=== PATIENT | female | born 1965 | race Caucasian/White ===

== ENCOUNTER 2021-02-10 07:53 | Outpatient (CLI) | payer BC, SELFPAY ==
--- NOTE | ~2021-02-10 | US_ITS ---
EXAMINATION: US abdomen complete DATE: 02/10/2021 08:25 INDICATION: Hepatomegaly TECHNIQUE: Multiple grayscale and Doppler ultrasound images of the abdomen were obtained. COMPARISON: None available FINDINGS: The head, body, and tail of the pancreas are normal. The liver is normal with normal echoge nicity and echotexture. No surface nodularity. Normal hepatopetal flow in the main portal vein. The g allbladder is normal with no abnormal wall thickening, pericholecystic fluid or stones. The normal co mmon bile duct measures 3 mm. There was no sonographic Wan sign. The visualized portions of the ao rta and inferior vena cava are normal. The right kidney measures a 10.0 x 3.5 x 3.7 cm. The left kidney measures 10.8 x 4.8 x 5.5 cm. The ki dneys demonstrate normal parenchymal echogenicity. There is no hydronephrosis. The spleen is normal i n appearance and measures 11.0 cm. IMPRESSION: 1. Normal sonographic appearance of the liver. Reviewed, dictated and finalized at location A. DROGENATION SUPERVISOR
--- NOTE | ~2021-02-10 | MM_ITS ---
EXAMINATION: MM screening vicente BI w carl HISTORY: Screening TECHNIQUE: Craniocaudal and mediolateral oblique 3-D tomosynthesis images were obtained and synthetic 2-D images were generated. CAD analysis was submitted and interpreted. COMPARISON: No prior mammogram is available for comparison at this institution. BREAST PARENCHYMAL COMPOSITION: Breast composed of scattered areas of fibroglandular density. FINDINGS: There is a cluster of indeterminate calcifications lower inner quadrant of the right breast . No suspicious masses, calcifications or architectural distortion in the left breast to suggest reggie gnancy. IMPRESSION: 1. Clustered indeterminate right breast calcifications, lower inner quadrant. 2. Magnification views are recommended. BI-RADS Category 0: Incomplete: Needs additional imaging evaluation. Reviewed, dictated and finalized at location A. GE WORKER
== END 2021-02-10 07:54 | disposition home or self-care (01) ==
LOC: CHSIMG 07:58
PROVIDERS: PCP Internal Medicine; Visit Provider Internal Medicine
DX: R16.0 Hepatomegaly, not elsewhere classified (principal); Z12.31 Encounter for screening mammogram for malignant neoplasm of breast
CPT/HCPCS: 76700; 77063; 77067

== ENCOUNTER 2021-02-17 09:56 | Outpatient (CLI) | payer BC, SELFPAY ==
--- NOTE | ~2021-02-17 | MM_ITS ---
EXAMINATION: MM diagnostic vicente RT w carl HISTORY: Follow-up right breast calcifications TECHNIQUE: Additional 3-D tomosynthesis images of the right breast were performed and synthetic 2-D i mages were generated. CAD analysis was submitted and interpreted. COMPARISON: 02/10/2021 BREAST PARENCHYMAL COMPOSITION: Breast composed of scattered areas of fibroglandular density. FINDINGS: There are pleomorphic clustered calcifications in the upper inner quadrant of the right kvng ast posteriorly. There are no suspicious masses or architectural distortion. IMPRESSION: 1. Clustered pleomorphic right breast calcifications. 2. Comparison to previous outside mammograms recommended. If prior mammograms are not available, ster eotactic right breast biopsy recommended. BI-RADS Category 0: Incomplete: Needs additional imaging evaluation. Reviewed, dictated and finalized at location A. RSIONAL THERAPIST'S ASSISTANT IMPRESSION: 1. Clustered pleomorphic right breast calcifications. 2. Comparison to previous outside mammograms recommended. If prior mammograms a re not available, stereotactic right breast biopsy recommended. BI-RADS Category 0: Incomplete: Needs additional imaging evaluation.
== END 2021-02-17 09:57 | disposition home or self-care (01) ==
LOC: CHSIMG 09:57
PROVIDERS: PCP Internal Medicine; Visit Provider Internal Medicine
DX: R92.1 Mammographic calcification found on diagnostic imaging of breast (principal)
CPT/HCPCS: 77061; 77065; G0279

== ENCOUNTER 2021-03-16 10:55 | Outpatient (CLI) | payer BC, SELFPAY ==
--- NOTE | ~2021-03-16 | MM_ITS ---
MM stereotactic bx RT, MM stereotactic specimen RT, MM post biopsy diagnostic RT EXAMINATION: MM ster eotactic bx RT, MM stereotactic specimen RT, MM post biopsy diagnostic RT DATE: Benjamin Yen M.D. INDICATION: Normal calcifications in the right breast. Stereotactic core biopsy is requested evalu e for malignancy.] TECHNIQUE AND FINDINGS: The risks and potential benefits of the procedure were discussed with the patient and written informe d consent was obtained. The patient was placed in the prone position clustered at the table with the right breast in craniocaudal compression, and the area of interest was localized and targeted utiliz ing digital imaging with stereotaxis. After sterile preparation of the skin, 1% lidocaine was utilized for local anesthesia at the skin pun cture site and 1% lidocaine with epinephrine was utilized for deeper local anesthesia/is about the bi opsy site. A 9G Zadspace vacuum assisted biopsy needle was advanced to the level of the calcification o f interest from a cephalad approach utilizing stereotactic guidance and a total of 6 tissue core biop sies were obtained. A specimen radiograph demonstrates that the calcifications of interest are included within the tissue cores. A tissue marker clip was then placed at the biopsy site. The needle was removed and hemosta sis was achieved. The patient tolerated the procedure well and there is no evidence of significant i mmediate complication. The patient was given verbal as well as written postprocedural instructions p rior to discharge from the department. Tissue cores were submitted to surgical pathology for histolo gic analysis. A 2-view right unilateral digital mammogram was obtained post procedure and this demonstrates that e tissue marker clip is in expected position. Tissue marker located in the lower inner quadrant of th e right breast.] IMPRESSION: 1. Successful stereotactic biopsy of calcifications in the lower inner quadrant of the right breast, followed by tissue marker clip placement. Please refer to pathology report for histologic analysis. Reviewed, dictated and finalized at location A. RANCE LOSS CONTROL SURVEYOR IMPRESSION: 1. Successful stereotactic biopsy of calcifications in the lower inner quadran t of the right breast, followed by tissue marker clip placement. Please refer to pathology report for histologic analysis. IMPRESSION: 1. Successful stereotactic biopsy of calcifications in the lower inner quadran t of the right breast, followed by tissue marker clip placement. Please refer to pathology report for histologic analysis.
== END 2021-03-16 10:56 | disposition home or self-care (01) ==
LOC: ANHIMG 10:58
PROVIDERS: PCP Internal Medicine; Visit Provider Internal Medicine
DX: R92.1 Mammographic calcification found on diagnostic imaging of breast (principal)
CPT/HCPCS: 19081; 77065; 88305; A4648

== ENCOUNTER 2021-09-12 00:12 | Day surgery (SDC) | payer BC, SELFPAY ==
[2021-08-15 14:35] VITALS: BMI 30.2
--- NOTE | 2021-09-11 13:19 | P.PNAN_ITS ---
Anes - Initial Pre Proc Eval Procedure: Operation Date: 09/12/21 11:45 Proposed Procedures p Screening Colonoscopy - Blas Bowden MD Date/Time: 09/11/21 13:19 Surgeon: Blas Bowden MD Pre Op Diagnosis: hx of colon polyps Patient Data Age: 56 Gender: F Height: 1.73 m Weight: 90 kg Allergies Allergy/AdvReac Type Severity Reaction Status Date / Time Penicillins Allergy Severe Unknown Verified 09/12/21 10:26 Home Medications Medication Instructions Recorded Confirmed Type No Home Medications 04/14/21 08/15/21 History Patient hx anesthesia problems: none Family hx anesthesia problems: none Results Review: All pre-operative results and documents have been reviewed as part of the pre- operative evaluation. [facility] Past Medical History Medical History (Updated 09/11/21 @ 13:19 by Elvis Reid MD) Obesity Social History Social History Smoking status: Never smoker Alcohol intake: current Drinks per week: 1 Substance use: never Substance use type: does not use Living arrangements: with family Spiritual care concerns: No Anes - Eval Final PreProcedure Day of Procedure 09/11/21 13:19 Patient weight: obese Heart: regular rate and rhythm Lungs: clear to auscultation and normal air movement Airway: Mallampati scale class II Neurological: alert and oriented Last oral intake: >/= 8 hours ASA classification: II Emergent: no Anesthetic plan: proceed Anesthesia type and monitoring: general GIVS Results Review: All pre-operative results and documents have been reviewed as part of the pre- operative evaluation. Informed Consent: The patient's anesthetic plan and its attendant risks and benefits were discussed with the patient/family/POA. Questions were solicited and answers provided to the satisfaction of the patient/family/POA.
[2021-09-12 10:27] VITALS: BP 130/88; PULSE 94; RESP 18; TEMP 36.6; O2SAT 99; BMI 29.9
[2021-09-12] MEDS: LACTATED RINGERS 1,000 ML 150 ML IV CONT (10:52)
--- NOTE | 2021-09-12 11:30 | PM.HPGS ---
History of Present Illness History of Present Illness Consent: Risks, benefits, and alternatives have been discussed and questions answered. Patient agrees to proceed with procedure. Chief complaint: hx of colon polyps Narrative: Kelley Butler is a 56 year old female with colon polyps in 2017 Review of Systems Constitutional: Constitutional: Denies headache(s) and Denies weakness Eyes: Eyes: Denies blurry vision ENT: Reports Normal hearing present, Denies headache(s) and Denies neck pain Cardiovascular: Cardiovascular: Denies chest pain and Denies dyspnea Respiratory: Respiratory: Denies dyspnea Gastrointestinal: Gastrointestinal: Reports no additional gastrointestinal complaints Genitourinary: Genitourinary: Denies dysuria Musculoskeletal: Musculoskeletal: Denies neck pain Integumentary/Breasts: Skin/Breast: Denies dry skin Neurologic: Reports Normal hearing present, Denies headache(s) and Denies weakness Psychiatric: Psychiatric: Denies anxiety Endocrine: Endocrine: Denies change in body appearance Hematologic/Lymphatic: Hematologic/Lymphatic: Denies easy bleeding Allergic/Immunologic: Allergic/Immunologic: Denies urticaria PMF Past Medical History Medical History (Updated 09/12/21 @ 11:31 by Blas Bowden MD) Adenomatous colon polyp Obesity Social History Social History Smoking status: Never smoker Alcohol intake: current Drinks per week: 1 Substance use: never Substance use type: does not use Living arrangements: with family Spiritual care concerns: No Meds Home Medications and Allergies Home Medications Medication Instructions Recorded Confirmed Type No Home Medications 04/14/21 08/15/21 History Allergies Allergy/AdvReac Type Severity Reaction Status Date / Time Penicillins Allergy Severe Unknown Verified 09/12/21 10:26 Vital Signs Vital Signs - 24 hr 09/12/21 10:27 Temperature 98 F Pulse Rate 94 Respiratory Rate 18 Blood Pressure 130/88 Pulse Oximetry 99 Oxygen Delivery Room Air Exam Const: General: comfortable and no acute distress HENMT: General nose exam: Normal nares present Eyes: General: appearance normal, both eyes and all related structures Neck: Neck: no JVD Resp: Auscultation: clear to auscultation bilaterally Cardio: Rate: regular rate Rhythm: regular rhythm GI: Inspection: non-distended GI Palp: Yes Soft to palpation Skin: General skin exam: normal color Neuro: General: gait normal Speech: normal speech Extrem: General: normal to inspection Psych: Mental Status: mental status grossly normal Assessment and Plan Assessment and plan (1) Adenomatous colon polyp: Code(s): D12.6 - Benign neoplasm of colon, unspecified Status: Acute Assessment and Plan: colonoscopy
[2021-09-12 11:56] VITALS: BP 99/74; PULSE 74; RESP 22; O2SAT 99
[2021-09-12 12:06] VITALS: BP 112/64; PULSE 69; RESP 18; O2SAT 100
[2021-09-12 12:16] VITALS: BP 109/60; PULSE 64; RESP 20; O2SAT 100
== END 2021-09-12 12:35 | disposition home or self-care (01) ==
PROVIDERS: PCP Internal Medicine; Visit Provider Internal Medicine Gastroenterology
PROC: 0DJD8ZZ Inspection of Lower Intestinal Tract, Via Natural or Artificial Opening Endoscopic (ICD-10-PCS; CPT 45378; principal; 2021-09-12 11:45)
DX: Z12.11 Encounter for screening for malignant neoplasm of colon (principal); K64.8 Other hemorrhoids; Z86.010 Personal history of colon polyps; E66.9 Obesity, unspecified; Z68.30 Body mass index [BMI] 30.0-30.9, adult
CPT/HCPCS: 45378; J2704; J7120